=== PATIENT | male | born 1990 ===

== ENCOUNTER 2018-07-28 10:38 | Day surgery (SDC) | payer OTHER ==
[~2018-07-28 10:38] MED LIST: Buffered Lidocaine 0.9% SYRIN* 5 ML/SYR SYRINGE INTRADERM ONE; Famotidine IV* 10 MG/ML 2 ML (20 mg) IV ONE
[2018-07-28] MEDS ORDERED: Famotidine IV* 10 MG/ML 2 ML (20 mg) ONE (10:48)
[2018-07-28] MEDS ORDERED: ceFAZolin 2 GM in NS PREMIX(*) 2 GM/100 ML BAG IVPB ONE (10:48)
[2018-07-28] MEDS ORDERED: fentaNYL* 50 MCG/ML 2 ML VIAL (100 MCG VIAL) ONE (12:52)
[2018-07-28] MEDS ORDERED: Midazolam* 1 MG/ML 5 ML VIAL (5 MG) ONE (12:52)
[2018-07-28] MEDS ORDERED: ROPIVACAINE 5 MG/ML 30 ML BTL (0.5%) ONE (13:31)
[2018-07-28] MEDS ORDERED: Ketorolac INJ* 30 MG/ML 1 ML VIAL ONE (13:51)
[2018-07-28] MEDS ORDERED: Lidocaine 2% PF * 5 ML VIAL ONE (13:51)
[2018-07-28] MEDS ORDERED: Ondansetron INJ* 2 MG/ML VIAL ONE (13:51)
[2018-07-28] MEDS ORDERED: Propofol* 10 MG/ML 20 ML BTL IV PUSH ONE (13:51)
[2018-07-28] MEDS ORDERED: DiMENhydriNATE IV* 50 MG/ML VIAL IV PUSH PRN (14:09)
[2018-07-28] MEDS ORDERED: Acetaminophen TAB* 325 MG PO PRN (14:09)
[2018-07-28 14:17] VITALS: BP 122/74
--- NOTE | 2018-07-29 05:23 | OP ---
DATE OF OPERATION: 07/28/[address] [facility] DATE OF : 89 SURGEON: Jarvis Gaines MD AUTOTRANSFUSIONIST: None. ANESTHESIOLOGIST: Dr. Michaud. ANESTHESIA: Local MAC. PRE-OP DIAGNOSIS: Retained deep pin, left ring finger. POST-OP DIAGNOSIS: Retained deep pin, left ring finger. OPERATIVE PROCEDURE: Removal of deep pin, left ring finger. INDICATIONS: Dilip had a pin placed into the left ring finger for some condition a long time ago. The pin is still in place. It is down very deep in the bone traversing the DIP joint. I talked to him about risks and benefits. He wanted to have the pin removed. FINDINGS: See above and below. ESTIMATED BLOOD LOSS: 1 mL. COMPLICATIONS: None. DESCRIPTION OF PROCEDURE: Dilip was seen in the preoperative holding area. The correct site, side, and procedure were identified. We came back to the operating room where the arm was prepped and draped in the usual fashion. A time-out was performed. The finger was exsanguinated with the Tourni-Cot device and this was left on proximally throughout the procedure. I then made a transverse incision over the distal aspect of the fingertip. Dissection was carried down through the subcutaneous tissue to the bone. I was able to free up around the pin and then I was able to use a mosquito to grab onto the pin and remove the pin. This came out uneventfully. I then irrigated out the wound and the skin was closed with 4-0 nylon suture. Soft dressings were placed on the finger. Tourni-Cot was let off and the finger pinked up immediately. He was then taken to the recovery room in stable condition. [id number]/[facility] #: [id number] [facility]
== END 2018-07-28 14:37 | disposition home or self-care (01) ==
LOC: OREAST 10:38
PROVIDERS: ATTEND Orthopaedic Surgery Hand Surgery
DX: T84.84XA Pain due to internal orthopedic prosthetic devices, implants and grafts, initial encounter (principal); Y83.1 Surgical operation with implant of artificial internal device as the cause of abnormal reaction of the patient, or of later complication, without mention of misadventure at the time of the procedure; Z72.0 Tobacco use; S62.625D Displaced fracture of middle phalanx of left ring finger, subsequent encounter for fracture with routine healing; X58.XXXD Exposure to other specified factors, subsequent encounter; Y92.9 Unspecified place or not applicable
CPT/HCPCS: 88300; J0690; J1885; J2250; J2405; J2704; J2795; J3010